=== PATIENT | male | born 1965 | race Hispanic/Latino ===

== ENCOUNTER 2021-09-17 06:58 | Emergency (ER) | payer SELFPAY ==
[2021-09-17 07:24] VITALS: BP 172/86
--- NOTE | 2021-09-17 07:36 | Emergency Department Report ---
ED General Adult HPI - General Chief complaint: Hyperglycemia Stated complaint: HIGH GLUCOSE PUI?: No Time Seen by Provider: 09/17/21 07:33 Source: patient Mode of arrival: Ambulatory Limitations: No Limitations - History of Present Illness Initial comments: 55-year-old male presents to the ER today with complaints of elevated blood sugar. Patient states that over the past few days he has been having symptoms of dysuria, urinary frequency, and pressure over his bladder especially when he sits. He states that he found this online clinic, and they sent over nurse practitioner to his home yesterday. He states that when he checked his blood sugar he noticed that it was 330. They also checked his urine and he noted that he had a UTI and he thinks they gave him IV antibiotics as well as a prescription for antibiotics. He was instructed to go to the ER yesterday because his anion gap was also elevated but he came in this morning. Patient does admit that he has noticed that he has had increased thirst, and not much of an appetite. He states that has been having frequent bowel movements but still has just been loose and not watery. He denies any nausea vomiting. Denies any chest pain or shortness of breath. He denies any dizziness, syncope or any additional symptoms. Patient states that his never had issues with his blood sugar before in the past. He denies any known family history of diabetes. He denies any other significant past medical history. He denies alcohol abuse or illicit drug use. Complaint: Elevated Blood sugar -: days(s) Severity scale (0 -10): 6 - Related Data Allergies Allergy/AdvReac Type Severity Reaction Status Date / Time No Known Allergies Allergy Verified 09/17/21 07:24 ED Review of Systems ROS: Stated complaint: HIGH GLUCOSE Other details as noted in HPI Comment: All other systems reviewed and negative Constitutional: denies: chills, fever Eyes: denies: eye pain, eye discharge, vision change ENT: denies: ear pain, throat pain Respiratory: denies: cough, shortness of breath, SOB with exertion, SOB at rest, wheezing Cardiovascular: denies: chest pain, palpitations, dyspnea on exertion, edema, syncope, paroxysmal nocturnal dyspnea Endocrine: increased hunger, increased thirst, increased urine Gastrointestinal: abdominal pain. denies: nausea, vomiting, diarrhea, constipation, hematemesis, melena, hematochezia Genitourinary: dysuria, frequency. denies: hematuria, discharge, testicular pain, testicular mass Musculoskeletal: denies: back pain, joint swelling, arthralgia Skin: denies: rash, lesions Neurological: denies: headache, weakness, paresthesias Psychiatric: denies: anxiety, depression, auditory hallucinations, visual hallucinations, homicidal thoughts, suicidal thoughts Hematological/Lymphatic: denies: easy bleeding, easy bruising ED Physical Exam - General Limitations: No Limitations General appearance: alert, in no apparent distress - Head Head exam: Present: atraumatic, normocephalic, normal inspection - Eye Eye exam: Present: normal appearance, PERRL, EOMI Pupils: Present: normal accommodation - Neck Neck exam: Present: normal inspection, full ROM. Absent: meningismus - Respiratory Respiratory exam: Present: normal lung sounds bilaterally. Absent: respiratory distress, wheezes, rales, rhonchi - Cardiovascular Cardiovascular Exam: Present: normal rhythm, tachycardia, normal heart sounds - GI/Abdominal GI/Abdominal exam: Present: soft. Absent: distended, tenderness, guarding, rebound - Neurological Exam Neurological exam: Present: alert, oriented X3, CN II-XII intact, normal gait - Psychiatric Psychiatric exam: Present: normal affect, normal mood - Skin Skin exam: Present: intact ED Course Vital Signs 09/17/21 07:21 Temperature 98.6 F Pulse Rate 100 H Respiratory 18 Rate Blood Pressure 172/86 [Left] O2 Sat by Pulse 100 Oximetry ED Medical Decision Making - Lab Data Result diagrams: 09/17/21 08:12 09/17/21 08:12 - Medical Decision Making 1000: Abigail Stewartield reported to me that he is unable to locate patient. He stated that patient IV came out and was going to replace IV so he could continue getting his IV fluids and insulin but he was with another patient at the time but when he went looking for patient to start the process he was no where to be found. Mr Valadez, also looked for patient and he was no where to be found. At 10:15 , I called patient on number listed on his demographics and no answer. I did review his labs, he does not appear to be in DKA at this time but his BS was elevated at [phone]. [phone]: Called patient on phone number listed in his demographics. Still no answer. Patient apparently eloped without notifying myself or staff. Critical care attestation.: If time is entered above; I have spent that time in minutes in the direct care of this critically ill patient, excluding procedure time. ED Disposition Clinical Impression: New onset type 2 diabetes mellitus Disposition: 07 LEFT AWOL/ELOPED Is pt being admited?: No Does the pt Need Aspirin: No Condition: Stable Instructions: Diabetes Mellitus Type 2 in Adults (ED) Referrals: PRIMARY CARE, [Primary Care Provider] - 3-5 Days
[2021-09-17] MEDS ORDERED: SODIUM CHLORIDE 0.9% 1000 ML 1,000 ML IV ONE (07:39)
[2021-09-17 07:57] LABS: Bilirubin,Urine NEG (Negative); Blood,Urine LG (Negative); Color,Urine Yellow (Yellow); Urobilinogen,Urine < 2.0 mg/dL (<2.0)
[2021-09-17] MEDS: SODIUM CHLORIDE 0.9% 1000 ML 1,000 ML IV ONE (08:05)
[2021-09-17] MEDS ORDERED: HYDROcodone/ACETAMINOPHEN 5-325 MG TAB PO ONE (08:10)
[2021-09-17] MEDS ORDERED: PHENAZOPYRIDINE 200 MG TAB PO ONE (08:10)
[2021-09-17 08:41] LABS: Basophils % (Auto) 0.2 % (0.0-1.8); Eosinophils # (Auto) 0.1 K/mm3 (0.0-0.4); Eosinophils % (Auto) 0.4 % (0.0-4.3); Hematocrit 40.3 % (35.5-45.6); Hemoglobin 13.5 gm/dl (11.8-15.2); Lymphocytes # (Auto) 0.9 K/mm3 (1.2-5.4); Lymphocytes % (Auto) 6.5 % (13.4-35.0); Mean Corpuscular HGB Conc 33 % (32-34); Mean Corpuscular Volume 81 fl (84-94); Monocytes # (Auto) 0.7 K/mm3 (0.0-0.8); Monocytes % (Auto) 4.9 % (0.0-7.3); Platelet Count 305 K/mm3 (140-440); Red Blood Count 4.97 M/mm3 (3.65-5.03); Red Cell Distribution Width 13.4 % (13.2-15.2)
[2021-09-17 09:05] LABS: Alanine Aminotransferase 17 units/L (7-56); Albumin 3.5 g/dL (3.9-5); Blood Urea Nitrogen 19 mg/dL (9-20); Calcium 8.6 mg/dL (8.4-10.2); Hemolysis Index 9
[2021-09-17 09:13] LABS: BUN/Creatinine Ratio 32
[2021-09-17] MEDS ORDERED: INSULIN REGULAR, HUMAN 100 UNITS/1 ML IV ONE (09:18)
--- NOTE | 2021-09-18 10:16 | Electrocardiograph Report ---
[facility] Test Date: 2021-09-17 Test Time: 07:43:57 Pat Name: FERNANDO TUCKER Department: Room: Gender: M Mysql Dba: IVAN : 1965 Requested By: KAEL LORENZO Order Number: [id number] Reading MD: Hugh Moore Measurements Intervals Iselin Rate: 101 P: 60 FL: 157 QRS: -36 QRSD: 86 T: 10 QT: 338 QTc: 439 Interpretive Statements Sinus tachycardia Atrial premature complex Left ventricle hypertrophy Left axis deviation No previous ECG available for comparison Electronically Signed On 09-18-2021 10:16:09 EST by Hugh Moore
== END 2021-09-17 10:00 | disposition left against medical advice (07) ==
LOC: ED 06:58
DX: E11.9 Type 2 diabetes mellitus without complications (principal)
CPT/HCPCS: 36415; 80053; 81001; 82805; 82962; 83735; 85025; 93005; 93010; 96360; 99284